=== PATIENT | female | born 1970 | race Caucasian/White ===

== ENCOUNTER 2017-01-13 13:57 | Emergency (ER) | payer BC | END 2017-01-13 14:55 | disposition left against medical advice (07) | LOC: ED 13:57 | DX: Z53.9 Procedure and treatment not carried out, unspecified reason (principal) ==

== ENCOUNTER 2022-12-11 17:25 | Observation (INO) | payer BC, MEDICARE ==
--- NOTE | 2022-12-11 17:38 | ERPHSYRPT ---
- History of Present Illness Historian: patient Exam Limitations: no limitations Timing/Duration: today Activities at Onset: none Abdominal Pain Onset Location: epigastric Pain Radiation: no radiation Modifying Factors: Improves With: vomiting Associated Symptoms: loss of appetite, nausea, vomiting, weakness, No chest pain, No diarrhea Previous symptoms: no prior history, no recent treatment <JULIETTE SHEPPARD - Last Filed: 12/11/22 19:04> <KANNAN NOLEN - Last Filed: 12/12/22 01:41> - History of Present Illness Time Seen by Provider: 12/11/22 17:38 Physician History: This is an obese 52-year-old white female who is diabetic and has significant coronary artery disease who presents with epigastric abdominal pain with vomiting. Patient received her last dose of Ozempic last week. She was told that her abdominal pain and vomiting symptoms were due to this. Patient denies chest pain. She denies shortness of breath. Additional patient history was obtained by the patient's spouse. Patient has felt feverish but no measured fever. She has not had diarrhea. (JULIETTE SHEPPARD) Allergies/Adverse Reactions: gabapentin Allergy (Verified 12/11/22 18:00) leflunomide Allergy (Verified 12/11/22 18:00) metoprolol Allergy (Verified 12/11/22 18:00) Home Medications: Abatacept [Orencia Clickject] 125 mg SQ UD 12/11/22 [History] Aspirin EC 81 mg [Ecotrin 81 mg] 81 mg PO DAILY 12/11/22 [History] Atorvastatin Calcium 40 mg PO DAILY 12/11/22 [History] Baclofen 10 mg [Lioresal 10 mg] 10 mg PO TID 12/11/22 [History] Buspirone HCl 5 mg [Buspar 5 mg] 5 mg PO BID 12/11/22 [History] Colestipol HCl [Colestid] 1 gm PO DAILY 12/11/22 [History] Dapagliflozin Propanediol [Farxiga] 10 mg PO DAILY 12/11/22 [History] Famotidine 20 mg [Pepcid 20 MG] 20 mg PO DAILY 12/11/22 [History] Ferrous Sulfate 325 mg PO BID 12/11/22 [History] Fluticasone/Umeclidin/Vilanter [Trelegy Ellipta 200-62.5-25] 1 inh PO DAILY 12/11/22 [History] Furosemide 20 mg [Lasix 20 mg] 20 mg PO DAILY 12/11/22 [History] Insulin Aspart (Niacinamide) [Fiasp 100 Unit/ml Flextouch] 10 units SQ DAILY 12/11/22 [History] Levothyroxine Sodium 100 mcg PO DAILY 12/11/22 [History] Lipase/Protease/Amylase [Ly Elizalde 36,000 Unit Capsule] 36,000 units PO UD 12/11/22 [History] Montelukast Sodium 10 mg [Singulair 10 MG] 10 mg PO DAILY 12/11/22 [History] PANTOPRAZOLE 40 mg Tablet [Protonix 40MG Tablet] 40 mg PO QPM 12/11/22 [History] Potassium Chloride [Klor-Con M20] 40 meq PO BID 12/11/22 [History] Semaglutide [Ozempic] 2 mg SQ WEEKLY 12/11/22 [History] Tizanidine HCl [Zanaflex] 6 mg PO DAILY 12/11/22 [History] dilTIAZem HCl [Diltiazem 24Hr Cd] 180 mg PO DAILY 12/11/22 [History] Travel Risk - International Travel Have you traveled outside of the country in past 3 weeks: No - Coronavirus Screening Are you exhibiting any of the following symptoms?: Yes Symptoms: Vomiting/Diarrhea Close contact with a COVID-19 positive Pt in past 14-21 Days: No <JULIETTE SHEPPARD - Last Filed: 12/11/22 19:04> - Review of Systems Constitutional: No Symptoms Eyes: No Symptoms Ears, Nose, & Throat: No Symptoms Respiratory: No Symptoms Cardiac: No Symptoms Abdominal/Gastrointestinal: Abdominal Pain, Nausea, Vomiting, No Diarrhea, No Constipation Genitourinary Symptoms: No Symptoms Musculoskeletal: No Symptoms Skin: No Symptoms Neurological: No Symptoms Psychological: No Symptoms Endocrine: No Symptoms Hematologic/Lymphatic: No Symptoms Immunological/Allergic: No Symptoms All Other Systems: Reviewed and Negative <JULIETTE SHEPPARD - Last Filed: 12/11/22 19:04> - Past Medical History Pertinent Past Medical History: Yes - Past Surgical History Past Surgical History: Yes <JULIETTE SHEPPARD - Last Filed: 12/11/22 19:04> - Physical Exam General Appearance: mild distress, alert, anxiety, obese Eye Exam: PERRL/EOMI, eyes nml inspection Ears, Nose, Throat Exam: normal ENT inspection, moist mucous membranes Neck Exam: normal inspection, non-tender, supple, full range of motion Respiratory Exam: normal breath sounds, lungs clear, airway intact, No chest tenderness, No respiratory distress Cardiovascular Exam: tachycardia Gastrointestinal/Abdomen Exam: soft, normal bowel sounds, tenderness (Epigastrium), guarding (Mild with palpation epigastrium), No rebound Rectal Exam: deferred Back Exam: normal inspection, normal range of motion, No CVA tenderness, No vertebral tenderness Extremity Exam: normal inspection, normal range of motion, pelvis stable Neurologic Exam: alert, oriented x 3, cooperative, community development worker II-XII nml as tested, nml cerebellar function, nml station & gait Skin Exam: normal color, warm, dry Lymphatic Exam: No adenopathy SpO2 Interpretation: normal O2 Delivery: Room Air <JULIETTE SHEPPARD - Last Filed: 12/11/22 19:04> - Nursing Vital Signs Nursing Vital Signs: Initial Vital Signs Temperature 98.3 F 12/11/22 17:36 Pulse Rate 124 H 12/11/22 17:36 Blood Pressure 157/87 12/11/22 17:36 O2 Sat by Pulse Oximetry 98 12/11/22 17:36 Pain Scale Pain Intensity 6 - Course Nursing assessment & vital signs reviewed: Yes <JULIETTE SHEPPARD - Last Filed: 12/11/22 19:04> - Course EKG Interpreted by Or: RATE ([id number]), Sinus Tach, NORMAL AXIS, NORMAL INTERVALS, NORMAL ST-T - CT Exams Abdomen/Pelvis CT Interpretation: Negative, Tele-radiologist Report <KANNAN NOLEN - Last Filed: 12/12/22 01:41> Ordered Tests: Active Orders 24 hr Category Date Time Status EKG-ER Only STAT Care 12/11/22 17:56 Completed IV Insertion STAT Care 12/11/22 17:56 Active ABDOMEN AND PELVIS W/0 CONTRAS [CT] Stat Exams 12/11/22 18:17 Completed AMYLASE Stat Lab 12/11/22 18:02 Completed BLOOD CULTURE Stat Lab 12/11/22 17:57 Received CBC W DIFF Stat Lab 12/11/22 18:02 Completed CMP Stat Lab 12/11/22 18:02 Completed LIPASE Stat Lab 12/11/22 18:02 Completed Lactic Acid Stat Lab 12/11/22 18:05 Completed TROPONIN Q4H Lab 12/11/22 18:02 Completed TROPONIN Q4H Lab 12/11/22 20:56 Completed TROPONIN Q4H Lab 12/12/22 02:00 Ordered UA W/RFX UR CULTURE Stat Lab 12/11/22 18:54 Completed VENOUS BLOOD GAS Stat Lab 12/11/22 20:55 Completed Medication Summary Generic Name Dose Route Start Last Admin Trade Name Freq PRN Reason Stop Dose Admin Lipase/Protease/Amylase 36,000 each 12/12/22 08:00 Lipase/Protease/Amylase 1 Each Capsule. PO 01/11/23 07:59 BIDWMEALS EUGENE Aspirin 81 mg 12/12/22 10:00 Aspirin 81 Mg Tab.Chew PO 01/11/23 09:59 [facility] Atorvastatin Calcium 40 mg 12/12/22 22:00 Atorvastatin Calcium 40 Mg Tablet PO 01/11/23 21:59 QPM EUGENE Baclofen 10 mg 12/12/22 10:00 Baclofen 10 Mg Tablet PO 01/11/23 09:59 TID [facility] Buspirone HCl 5 mg 12/12/22 10:00 Buspirone Hcl 5 Mg Tablet PO 01/11/23 09:59 BID [facility] Diltiazem HCl 180 mg 12/12/22 10:00 Diltiazem Hcl Cd 180 Mg Cap.Sr.24h PO 01/11/23 09:59 DAILY [facility] Enoxaparin Sodium 40 mg 12/12/22 10:00 Enoxaparin Sodium 40 Mg/0.4 Ml Syringe SQ 01/11/23 09:59 DA[facility] Famotidine 20 mg 12/12/22 22:00 Famotidine 20 Mg Tablet PO 01/11/23 21:59 HS EUGENE Ferrous Sulfate 325 mg 12/12/22 10:00 Ferrous Sulfate 325 Mg Tablet PO 01/11/23 09:59 [facility] Lactated Ringer's 1,000 mls @ 100 mls/hr 12/11/22 23:30 Lactated Ringers IV 12/12/22 09:00 .Q10H EUGENE Sodium Chloride 1,000 mls @ 100 mls/hr 12/11/22 23:45 12/12/22 00:02 Sodium Chloride 0.9% 1000 Ml IV 01/10/23 23:44 100 mls/hr .Q10H EUGENE Administration Promethazine HCl 25 mg/ Sodium 101 mls @ 200 mls/hr 12/11/22 23:33 Chloride IV 01/10/23 23:32 Q4H PRN PRN UNCONTROLLED NAUSEA Insulin Human Lispro 0 unit 12/11/22 23:39 Insulin Lispro 1 Unit SQ 01/10/23 23:38 UD PRN HYPERGLYCEMIA Levothyroxine Sodium 100 mcg 12/12/22 07:00 Levothyroxine Sodium 100 Mcg Tablet PO 01/11/23 06:59 DAILY@0700 [facility] Montelukast Sodium 10 mg 12/12/22 10:00 Montelukast Sodium 10 Mg Tablet PO 01/11/23 09:59 [facility] Morphine Sulfate 2 mg 12/11/22 23:29 Morphine Sulfate 2 Mg/Ml Inj IV 12/16/22 23:28 Q4H PRN PRN PAIN Ondansetron HCl 4 mg 12/11/22 23:29 Ondansetron Hcl 4 Mg/2 Ml Vial IV 01/10/23 23:28 Q4H PRN PRN NAUSEA/VOMITING Pantoprazole Sodium 40 mg 12/12/22 10:00 Protonix (Pantoprazole) 40 Mg Tablet PO 01/11/23 09:59 DAILY [facility] Tizanidine HCl 6 mg 12/12/22 10:00 Tizanidine Hcl 4 Mg Tablet PO 01/11/23 09:59 DAILY [facility] Discontinued Medications Generic Name Dose Route Start Last Admin Trade Name Freq PRN Reason Stop Dose Admin Droperidol 1.25 mg 12/11/22 20:33 12/11/22 21:17 Droperidol 5 Mg/2 Ml Vial IV 12/11/22 20:34 1.25 mg STAT ONE Administration Droperidol Confirm 12/11/22 21:15 Droperidol 5 Mg/2 Ml Vial Administered 12/11/22 21:16 Dose 5 mg .ROUTE .STK-MED ONE Hydromorphone HCl 0.5 mg 12/11/22 18:24 12/11/22 18:32 Hydromorphone 1 Mg/1ml Inj 1 Mg/Ml Syringe IV 12/11/22 18:25 Not Given STAT ONE Sodium Chloride 1,000 mls @ 999 mls/hr 12/11/22 17:56 12/11/22 19:43 Sodium Chloride 0.9% 1000 Ml IV 12/11/22 18:56 Infused .Q1H1M STA Infusion Sodium Chloride Confirm 12/11/22 18:24 Sodium Chloride 0.9% 1000 Ml Administered 12/11/22 18:25 Dose 1,000 mls @ ud .ROUTE .STK-InflowControl ONE Ondansetron HCl 4 mg 12/11/22 17:56 12/11/22 18:25 Ondansetron Hcl 4 Mg/2 Ml Vial IV 12/11/22 17:57 4 mg STAT ONE Administration Ondansetron HCl Confirm 12/11/22 18:24 Ondansetron Hcl 4 Mg/2 Ml Vial Administered 12/11/22 18:25 Dose 4 mg .ROUTE .NewGoTos-InflowControl ONE Lab/Rad Data: Laboratory Result Diagrams 12/11/22 18:02 12/11/22 18:02 Laboratory Results 12/11/22 12/11/22 12/11/22 Range/Units 20:56 20:55 18:54 WBC (4.0-10.5) x10^3/uL RBC (4.1-5.4) x10^6/uL Hgb (12.0-16.0) g/dL Hct (35-47) % MCV (78-100) fL MCH (26-32) pg MCHC (32-36) g/dL RDW (11.5-14.0) % Plt Count (150-450) x10^3/uL MPV (7.5-11.0) fL Gran % (36.0-66.0) % Immature Gran % (Auto) (0.00-0.4) % Nucleat RBC Rel Count (0.00-0.1) % Eos # (Auto) (0-0.5) x10^3/uL Immature Gran # (Auto) (0.00-0.03) x10^3u/L Absolute Lymphs (auto) (1.0-4.6) x10^3/uL Absolute Monos (auto) (0.0-1.3) x10^3/uL Absolute Nucleated RBC (0.00-0.01) x10^3u/L Lymphocytes % (24.0-44.0) % Monocytes % (0.0-12.0) % Eosinophils % (0.00-5.0) % Basophils % (0.0-0.4) % Absolute Granulocytes (1.4-6.9) x10^3/uL Basophils # (0-0.4) x10^3/uL pO2/FiO2 Ratio 21.0 % VBG pH 7.43 H (7.32-7.42) VBG pCO2 at Pat Temp 36 L (42-55) mm/Hg VBG pO2 at Pat Temp 28 (25-40) mm/Hg VBG HCO3 23.9 (22-28) meq/L VBG O2 Sat (Deborah) 47.2 L (95-100) VBG Base Excess 0.0 (-2.0-2.0) VBG Hemoglobin 16.1 VBG Carboxyhemoglobin 1.7 (0.0-6.9) % T HGB POC Potassium 4.2 (3.5-5.1) Sodium (137-145) mmol/L Potassium (3.5-5.1) mmol/L Chloride (98-107) mmol/L Carbon Dioxide (22-30) mmol/L Anion Gap (5-15) MEQ/L BUN (7-17) mg/dL Creatinine (0.52-1.04) mg/dL Estimated GFR ML/MIN Glucose (74-106) mg/dL Lactic Acid (0.4-2.0) Calcium (8.4-10.2) mg/dL Total Bilirubin (0.2-1.3) mg/dL AST (14-36) U/L ALT (0-35) U/L Alkaline Phosphatase (38-126) U/L Troponin I 0.094 H* (0.000-0.034) ng/mL Serum Total Protein (6.3-8.2) g/dL Albumin (3.5-5.0) g/dL Amylase (30-110) U/L Lipase (23-300) U/L Urine Color Yellow (Yellow) Urine Appearance Clear (Clear) Urine pH 5.0 (4.6-8.0) Ur Specific [place] >=1.030 A (1.005-1.030) Urine Protein Negative (Negative) Urine Glucose (UA) >=1000 A (Negative) mg/dL Urine Ketones 80 A (Negative) Urine Blood Negative (Negative) Urine Nitrite Negative (Negative) Urine Bilirubin Negative (Negative) Urine Urobilinogen 0.2 (0.2) mg/dL Ur Leukocyte Esterase Negative (Negative) U Hyaline Cast (Auto) NONE SEEN (0-2) /LPF Urine Microscopic RBC 0-2 (0-5) /HPF Urine Microscopic WBC 0-2 (0-5) /HPF Ur Epithelial Cells None Seen (None Seen) /HPF Urine Bacteria None Seen (None Seen) /HPF Urine Culture Reflexed NO (NO) Influenza Type A Ag (NEGATIVE) Influenza Type B Ag (NEGATIVE) RSV (PCR) (NEGATIVE) SARS-CoV-2 (PCR) (NEGATIVE) 12/11/22 12/11/22 12/11/22 Range/Units 18:47 18:05 18:02 WBC (4.0-10.5) x10^3/uL RBC (4.1-5.4) x10^6/uL Hgb (12.0-16.0) g/dL Hct (35-47) % MCV (78-100) fL MCH (26-32) pg MCHC (32-36) g/dL RDW (11.5-14.0) % Plt Count (150-450) x10^3/uL MPV (7.5-11.0) fL Gran % (36.0-66.0) % Immature Gran % (Auto) (0.00-0.4) % Nucleat RBC Rel Count (0.00-0.1) % Eos # (Auto) (0-0.5) x10^3/uL Immature Gran # (Auto) (0.00-0.03) x10^3u/L Absolute Lymphs (auto) (1.0-4.6) x10^3/uL Absolute Monos (auto) (0.0-1.3) x10^3/uL Absolute Nucleated RBC (0.00-0.01) x10^3u/L Lymphocytes % (24.0-44.0) % Monocytes % (0.0-12.0) % Eosinophils % (0.00-5.0) % Basophils % (0.0-0.4) % Absolute Granulocytes (1.4-6.9) x10^3/uL Basophils # (0-0.4) x10^3/uL pO2/FiO2 Ratio % VBG pH (7.32-7.42) VBG pCO2 at Pat Temp (42-55) mm/Hg VBG pO2 at Pat Temp (25-40) mm/Hg VBG HCO3 (22-28) meq/L VBG O2 Sat (Deborah) (95-100) VBG Base Excess (-2.0-2.0) VBG Hemoglobin VBG Carboxyhemoglobin (0.0-6.9) % T HGB POC Potassium (3.5-5.1) Sodium (137-145) mmol/L Potassium (3.5-5.1) mmol/L Chloride (98-107) mmol/L Carbon Dioxide (22-30) mmol/L Anion Gap (5-15) MEQ/L BUN (7-17) mg/dL Creatinine (0.52-1.04) mg/dL Estimated GFR ML/MIN Glucose (74-106) mg/dL Lactic Acid 1.6 (0.4-2.0) Calcium (8.4-10.2) mg/dL Total Bilirubin (0.2-1.3) mg/dL AST (14-36) U/L ALT (0-35) U/L Alkaline Phosphatase (38-126) U/L Troponin I 0.092 H* (0.000-0.034) ng/mL Serum Total Protein (6.3-8.2) g/dL Albumin (3.5-5.0) g/dL Amylase (30-110) U/L Lipase (23-300) U/L Urine Color (Yellow) Urine Appearance (Clear) Urine pH (4.6-8.0) Ur Specific [place] (1.005-1.030) Urine Protein (Negative) Urine Glucose (UA) (Negative) mg/dL Urine Ketones (Negative) Urine Blood (Negative) Urine Nitrite (Negative) Urine Bilirubin (Negative) Urine Urobilinogen (0.2) mg/dL Ur Leukocyte Esterase (Negative) U Hyaline Cast (Auto) (0-2) /LPF Urine Microscopic RBC (0-5) /HPF Urine Microscopic WBC (0-5) /HPF Ur Epithelial Cells (None Seen) /HPF Urine Bacteria (None Seen) /HPF Urine Culture Reflexed (NO) Influenza Type A Ag NEGATIVE (NEGATIVE) Influenza Type B Ag NEGATIVE (NEGATIVE) RSV (PCR) NEGATIVE (NEGATIVE) SARS-CoV-2 (PCR) NEGATIVE (NEGATIVE) 12/11/22 12/11/22 Range/Units 18:02 18:02 WBC 10.4 (4.0-10.5) x10^3/uL RBC 5.30 (4.1-5.4) x10^6/uL Hgb 16.0 (12.0-16.0) g/dL Hct 48.2 H (35-47) % MCV 90.9 (78-100) fL MCH 30.2 (26-32) pg MCHC 33.2 (32-36) g/dL RDW 12.3 (11.5-14.0) % Plt Count 381 (150-450) x10^3/uL MPV 9.3 (7.5-11.0) fL Gran % 85.2 H (36.0-66.0) % Immature Gran % (Auto) 0.3 (0.00-0.4) % Nucleat RBC Rel Count 0.0 (0.00-0.1) % Eos # (Auto) 0 (0-0.5) x10^3/uL Immature Gran # (Auto) 0.03 (0.00-0.03) x10^3u/L Absolute Lymphs (auto) 1.20 (1.0-4.6) x10^3/uL Absolute Monos (auto) 0.27 (0.0-1.3) x10^3/uL Absolute Nucleated RBC 0.00 (0.00-0.01) x10^3u/L Lymphocytes % 11.5 L (24.0-44.0) % Monocytes % 2.6 (0.0-12.0) % Eosinophils % 0.0 (0.00-5.0) % Basophils % 0.4 (0.0-0.4) % Absolute Granulocytes 8.89 H (1.4-6.9) x10^3/uL Basophils # 0.04 (0-0.4) x10^3/uL pO2/FiO2 Ratio % VBG pH (7.32-7.42) VBG pCO2 at Pat Temp (42-55) mm/Hg VBG pO2 at Pat Temp (25-40) mm/Hg VBG HCO3 (22-28) meq/L VBG O2 Sat (Deborah) (95-100) VBG Base Excess (-2.0-2.0) VBG Hemoglobin VBG Carboxyhemoglobin (0.0-6.9) % T HGB POC Potassium (3.5-5.1) Sodium 143 (137-145) mmol/L Potassium 3.7 (3.5-5.1) mmol/L Chloride 109 H (98-107) mmol/L Carbon Dioxide 21 L (22-30) mmol/L Anion Gap 17.7 H (5-15) MEQ/L BUN 12 (7-17) mg/dL Creatinine 0.67 (0.52-1.04) mg/dL Estimated GFR > 60.0 ML/MIN Glucose 155 H (74-106) mg/dL Lactic Acid (0.4-2.0) Calcium 10.0 (8.4-10.2) mg/dL Total Bilirubin 0.70 (0.2-1.3) mg/dL AST 29 (14-36) U/L ALT 31 (0-35) U/L Alkaline Phosphatase 130 H (38-126) U/L Troponin I (0.000-0.034) ng/mL Serum Total Protein 7.4 (6.3-8.2) g/dL Albumin 4.5 (3.5-5.0) g/dL Amylase 65 (30-110) U/L Lipase 253 (23-300) U/L Urine Color (Yellow) Urine Appearance (Clear) Urine pH (4.6-8.0) Ur Specific [place] (1.005-1.030) Urine Protein (Negative) Urine Glucose (UA) (Negative) mg/dL Urine Ketones (Negative) Urine Blood (Negative) Urine Nitrite (Negative) Urine Bilirubin (Negative) Urine Urobilinogen (0.2) mg/dL Ur Leukocyte Esterase (Negative) U Hyaline Cast (Auto) (0-2) /LPF Urine Microscopic RBC (0-5) /HPF Urine Microscopic WBC (0-5) /HPF Ur Epithelial Cells (None Seen) /HPF Urine Bacteria (None Seen) /HPF Urine Culture Reflexed (NO) Influenza Type A Ag (NEGATIVE) Influenza Type B Ag (NEGATIVE) RSV (PCR) (NEGATIVE) SARS-CoV-2 (PCR) (NEGATIVE) - Progress Progress: improved, pain not gone completely Counseled pt/family regarding: lab results, diagnosis, need for follow-up, rad r esults <JULIETTE SHEPPARD - Last Filed: 12/11/22 19:04> <KANNAN NOLEN - Last Filed: 12/12/22 01:41> - Progress Progress Note: 12/11/22 19:04 Patient transfer of care to Dr. Nolen at shift change. 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 Decision made to admit for ACS r/o, nausea and pain control. Dr. Johnson agrees to accept at 2152. (KANNAN NOLEN) Medical Desision Making - Discussion of managment Care discussed with:: hospitalist Reviewed:: Test results, Need for additional workup Agreed on:: Treatment plan, place in obs Will see patient: in hospital - Diagnostic Testing Diagnostic test were ordered, analyzed, and reviewed by me: Yes Radiological Interpretation: Interpreted by me - Risk of complications The pt has a mod risk of morbidity or mortality based on: Need for prescription drug management The pt has a high risk of morbidity or mortality based on: Decision regarding hospitilization or escalation of hosp level of care <KANNAN NOLEN - Last Filed: 12/12/22 01:41> - Departure Departure Disposition: Transfer Critical Care Time: No <JULIETTE SHEPPARD - Last Filed: 12/11/22 19:04> - Departure Departure Disposition: Observation <KANNAN NOLEN - Last Filed: 12/12/22 01:41> - Departure Clinical Impression: Abdominal pain, Vomiting, Elevated troponin Condition: Stable
[2022-12-11] MEDS ORDERED: Sodium Chloride 0.9% 1000 ML 1,000 ML IV STA (17:56)
[2022-12-11] MEDS ORDERED: Zofran 4 MG/2 ML VIAL IV ONE (17:56)
[2022-12-11 18:06] LABS: Absolute Neutrophil Ct (ANC) 8.89 x10^3/uL (1.4-6.9); BASOPHIL % 0.4 % (0.0-0.4); Basophil (Absolute #) 0.04 x10^3/uL (0-0.4); Eosinophil (Absolute #) 0 x10^3/uL (0-0.5); Hematocrit 48.2 % (35-47); IMMATURE GRAN # 0.03 x10^3u/L (0.00-0.03); IMMATURE GRAN % 0.3 % (0.00-0.4); Lymphocytes % 11.5 % (24.0-44.0); Mean Cell Volume 90.9 fL (78-100); Mean Corpuscular Hemoglobin 30.2 pg (26-32); Mean Corpuscular Hgb Concent. 33.2 g/dL (32-36); Mean Platelet Volume 9.3 fL (7.5-11.0); Monocyte (Absolute #) 0.27 x10^3/uL (0.0-1.3); Monocytes % 2.6 % (0.0-12.0); Neutrophil % 85.2 % (36.0-66.0); Platelet Count 381 x10^3/uL (150-450); Red Cell Distribution Width 12.3 % (11.5-14.0); White Blood Count 10.4 x10^3/uL (4.0-10.5)
[2022-12-11 18:20] LABS: ALBUMIN 4.5 g/dL (3.5-5.0); ALKALINE PHOSPHATASE 130 U/L (38-126); AMYLASE 65 U/L (30-110); ANION GAP 17.7 MEQ/L (5-15); BLOOD UREA NITROGEN 12 mg/dL (7-17); CHLORIDE 109 mmol/L (98-107); Carbon Dioxide 21 mmol/L (22-30); Creatinine 1 0.67 mg/dL (0.52-1.04); EST GLOMERULAR FILTRATION RATE > 60.0 ML/MIN; Glucose 155 mg/dL (74-106); LIPASE 253 U/L (23-300); Potassium 3.7 mmol/L (3.5-5.1); SGOT/AST 29 U/L (14-36); SGPT/ALT 31 U/L (0-35); SODIUM 143 mmol/L (137-145); Total Protein 7.4 g/dL (6.3-8.2)
[2022-12-11] MEDS ORDERED: Hydromorphone 1 mg/ml Injection IV ONE (18:24)
[2022-12-11] MEDS ORDERED: Zofran 4 MG/2 ML VIAL ONE (18:24)
[2022-12-11] MEDS ORDERED: Sodium Chloride 0.9% 1000 ML 1,000 ML ONE (18:24)
[2022-12-11 19:21] LABS: Appearance Clear (Clear); Bacteria None Seen /HPF (None Seen); Bilirubin Negative (Negative); Blood Negative (Negative); Epithelial Cells None Seen /HPF (None Seen); Glucose, Urine >=1000 mg/dL (Negative); Hyaline Casts NONE SEEN /LPF (0-2); Ketones 80 (Negative); Leukocyte Esterase Negative (Negative); Nitrite Negative (Negative); Protein,Urine Dip Negative (Negative); RBC 0-2 /HPF (0-5); Specific Gravity >=1.030 (1.005-1.030); Urobilinogen 0.2 mg/dL (0.2); WBC 0-2 /HPF (0-5)
[2022-12-11 19:26] LABS: ADD URINE CULTURE? NO (NO)
[2022-12-11 19:31] LABS: INFLUENZA A NEGATIVE (NEGATIVE); INFLUENZA B NEGATIVE (NEGATIVE); RESPIRATORY SYNCTIAL VIRUS NEGATIVE (NEGATIVE); SARS-CoV-2 Xpert Express NEGATIVE (NEGATIVE)
--- NOTE | 2022-12-11 19:58 | XRAY ---
Indication: Nausea and vomiting 2 days. Multiple contiguous axial images obtained through the abdomen and pelvis without contrast. Comparison: None Lung bases clear. Heart not enlarged with scattered coronary calcifications. Left abdominal pain pump produces beam artifact limiting exam. Noncontrasted stomach and bowel loops appear nonobstructed. Appendectomy and cholecystectomy. No free fluid/air. Remaining liver, pancreas, spleen, adrenal glands, kidneys, ureters, bladder, and uterus are unremarkable for noncontrast exam. Mild scattered aortic calcifications without AAA. Osseous structures intact with minimal/mild degenerative changes throughout the spine. Incidental sternotomy wires. Impression: 1. Beam artifact from pain pump. 2. Arteriosclerotic disease and degenerative spondylosis. 3. Remaining CT abdomen/pelvis without contrast exam is negative. Comment: Preliminary interpretation made by [facility]. No critical discrepancy.
[2022-12-11 20:59] LABS: VBG CARBOXYHEMOGLOBIN 1.7 % T HGB (0.0-6.9); VBG HCO3- 23.9 meq/L (22-28); VBG HEMOGLOBIN 16.1; VBG O2 SATURATION 47.2 (95-100); VBG POTASSIUM 4.2 (3.5-5.1); VBG pH 7.43 (7.32-7.42)
[2022-12-11] MEDS ORDERED: MORPHINE SULFATE 2 MG INJ IV PRN (23:29)
[2022-12-11] MEDS ORDERED: Zofran 4 MG/2 ML VIAL IV PRN (23:29)
[2022-12-11] MEDS ORDERED: Lactated Ringers 1,000 ML IV SCH (23:30)
[2022-12-11] MEDS ORDERED: Phenergan 25 MG INJ*** 25 MG in Sodium Chloride 0.9% 100 ML IV PRN (23:33)
[2022-12-11] MEDS ORDERED: HUMALOG SQ PRN (23:39)
[2022-12-11] MEDS ORDERED: Sodium Chloride 0.9% 1000 ML 1,000 ML IV SCH (23:45)
--- NOTE | 2022-12-11 23:51 | PCM.HP ---
History of Present Illness - Chief Complaint Chief Complaint: n/v/ TERESA pain History of Present Illness: 52 yo wf with hx of DM, CAD, OA, RA, Pancreatitic insufficiency presents with 1 day hx of n/v and TERESA pain. Pt states this is the 3rd episode since last June. Symptoms sudden. PCP and GI provider felt it was 2/2 Ozempic(takes weekly). Last episode resolved without issue. Denies melena. Denies use of NSAIDs. Had unrevealing EGD last Jun. Has since stopped OZempic last week but sxs came. Denies chest pain or sob. In ED pt with mild increase in trop. 2nd set flat. No ECG changes. CT abd unrevealing. - Review of Systems Constitutional: No Symptoms Eyes: No Symptoms Ears, Nose, & Throat: No Symptoms Respiratory: No Symptoms Cardiac: No Symptoms Abdominal/Gastrointestinal: Abdominal Pain, Nausea, Vomiting Genitourinary Symptoms: No Symptoms Musculoskeletal: Joint Pain Skin: No Symptoms Neurological: No Symptoms Psychological: No Symptoms Endocrine: No Symptoms Hematologic/Lymphatic: No Symptoms Immunological/Allergic: No Symptoms All Other Systems: Reviewed and Negative Medications & Allergies Home Medications: Home Medication List Abatacept [Orencia Clickject] 125 mg SQ UD 12/11/22 [History Confirmed 12/11/22] Aspirin EC 81 mg [Ecotrin 81 mg] 81 mg PO DAILY 12/11/22 [History Confirmed 12/11/22] Atorvastatin Calcium 40 mg PO DAILY 12/11/22 [History Confirmed 12/11/22] Baclofen 10 mg [Lioresal 10 mg] 10 mg PO TID 12/11/22 [History Confirmed 12/11/22] Buspirone HCl 5 mg [Buspar 5 mg] 5 mg PO BID 12/11/22 [History Confirmed 12/11/22] Colestipol HCl [Colestid] 1 gm PO DAILY 12/11/22 [History Confirmed 12/11/22] Dapagliflozin Propanediol [Farxiga] 10 mg PO DAILY 12/11/22 [History Confirmed 12/11/22] Famotidine 20 mg [Pepcid 20 MG] 20 mg PO DAILY 12/11/22 [History Confirmed 12/11/22] Ferrous Sulfate 325 mg PO BID 12/11/22 [History Confirmed 12/11/22] Fluticasone/Umeclidin/Vilanter [Trelegy Ellipta 200-62.5-25] 1 inh PO DAILY 12/11/22 [History Confirmed 12/11/22] Furosemide 20 mg [Lasix 20 mg] 20 mg PO DAILY 12/11/22 [History Confirmed 12/11/22] Insulin Aspart (Niacinamide) [Fiasp 100 Unit/ml Flextouch] 10 units SQ DAILY 12/11/22 [History Confirmed 12/11/22] Levothyroxine Sodium 100 mcg PO DAILY 12/11/22 [History Confirmed 12/11/22] Lipase/Protease/Amylase [Ly Elizalde 36,000 Unit Capsule] 36,000 units PO UD 12/11/22 [History Confirmed 12/11/22] Montelukast Sodium 10 mg [Singulair 10 MG] 10 mg PO DAILY 12/11/22 [History Confirmed 12/11/22] PANTOPRAZOLE 40 mg Tablet [Protonix 40MG Tablet] 40 mg PO QPM 12/11/22 [History Confirmed 12/11/22] Potassium Chloride [Klor-Con M20] 40 meq PO BID 12/11/22 [History Confirmed 12/11/22] Semaglutide [Ozempic] 2 mg SQ WEEKLY 12/11/22 [History Confirmed 12/11/22] Tizanidine HCl [Zanaflex] 6 mg PO DAILY 12/11/22 [History Confirmed 12/11/22] dilTIAZem HCl [Diltiazem 24Hr Cd] 180 mg PO DAILY 12/11/22 [History Confirmed 12/11/22] Allergies/Adverse Reactions: Allergies Allergy/AdvReac Type Severity Reaction Status Date / Time gabapentin Allergy Verified 12/11/22 18:00 leflunomide Allergy Verified 12/11/22 18:00 metoprolol Allergy Verified 12/11/22 18:00 - Past Medical History Past Medical History: Yes Neurological History: No Pertinent History ENT History: No Pertinent History Cardiac History: Coronary Artery Disease, Other Respiratory History: Asthma Endocrine Medical History: Diabetes Type II, Hypothyroidism Musculoskelatal History: Degenerative Disk Disease, Osteoarthritis, Rheumatoid Arthritis GI Medical History: No Pertinent History History: No Pertinent History Reproductive Disorders: No Pertinent History Comment: pancreatic insufficincy, facet joint degeneration, pain pump implant(CHronic back pain) - Past Surgical History Past Surgical History: Yes Neuro Surgical History: No Pertinent History Cardiac History: CABG, Cardiac Catheterization Respiratory Surgery: No Pertinent History GI Surgical History: Appendectomy, Cholecystectomy Genitourinary Surgical Hx: No Pertinent History Female Surgical History: Dilation & Curettage, Tubal Ligation Other Surgical History: back surgery, pain pump - Social History Smoking Status: Never smoker Exposure to second hand smoke: Yes Alcohol: Rarely Drug Use: none - Physical Exam Vital Signs: Vital Signs - 24 hr Temp Pulse BP Pulse Ox 12/11/22 19:10 122 H 153/102 99 12/11/22 17:36 98.3 F 124 H 157/87 98 General Appearance: no apparent distress Neurologic Exam: alert, oriented x 3, cooperative Eye Exam: PERRL/EOMI, eyes nml inspection Ears, Nose, Throat Exam: normal ENT inspection Neck Exam: normal inspection Respiratory Exam: normal breath sounds Cardiovascular Exam: regular rate/rhythm, normal heart sounds, normal peripheral pulses Gastrointestinal/Abdomen Exam: soft, normal bowel sounds, No guarding, No rebound Back Exam: normal inspection Extremity Exam: normal inspection, normal range of motion Skin Exam: normal color, warm Results - Labs Lab/Micro Results: Lab Results-Last 24 Hours 12/11/22 12/11/22 12/11/22 Range/Units 18:02 18:02 18:02 WBC 10.4 (4.0-10.5) x10^3/uL RBC 5.30 (4.1-5.4) x10^6/uL Hgb 16.0 (12.0-16.0) g/dL Hct 48.2 H (35-47) % MCV 90.9 (78-100) fL MCH 30.2 (26-32) pg MCHC 33.2 (32-36) g/dL RDW 12.3 (11.5-14.0) % Plt Count 381 (150-450) x10^3/uL MPV 9.3 (7.5-11.0) fL Gran % 85.2 H (36.0-66.0) % Immature Gran % (Auto) 0.3 (0.00-0.4) % Nucleat RBC Rel Count 0.0 (0.00-0.1) % Eos # (Auto) 0 (0-0.5) x10^3/uL Immature Gran # (Auto) 0.03 (0.00-0.03) x10^3u/L Absolute Lymphs (auto) 1.20 (1.0-4.6) x10^3/uL Absolute Monos (auto) 0.27 (0.0-1.3) x10^3/uL Absolute Nucleated RBC 0.00 (0.00-0.01) x10^3u/L Lymphocytes % 11.5 L (24.0-44.0) % Monocytes % 2.6 (0.0-12.0) % Eosinophils % 0.0 (0.00-5.0) % Basophils % 0.4 (0.0-0.4) % Absolute Granulocytes 8.89 H (1.4-6.9) x10^3/uL Basophils # 0.04 (0-0.4) x10^3/uL pO2/FiO2 Ratio % VBG pH (7.32-7.42) VBG pCO2 at Pat Temp (42-55) mm/Hg VBG pO2 at Pat Temp (25-40) mm/Hg VBG HCO3 (22-28) meq/L VBG O2 Sat (Deborah) (95-100) VBG Base Excess (-2.0-2.0) VBG Hemoglobin VBG Carboxyhemoglobin (0.0-6.9) % T HGB POC Potassium (3.5-5.1) Sodium 143 (137-145) mmol/L Potassium 3.7 (3.5-5.1) mmol/L Chloride 109 H (98-107) mmol/L Carbon Dioxide 21 L (22-30) mmol/L Anion Gap 17.7 H (5-15) MEQ/L BUN 12 (7-17) mg/dL Creatinine 0.67 (0.52-1.04) mg/dL Estimated GFR > 60.0 ML/MIN Glucose 155 H (74-106) mg/dL Lactic Acid (0.4-2.0) Calcium 10.0 (8.4-10.2) mg/dL Total Bilirubin 0.70 (0.2-1.3) mg/dL AST 29 (14-36) U/L ALT 31 (0-35) U/L Alkaline Phosphatase 130 H (38-126) U/L Troponin I 0.092 H* (0.000-0.034) ng/mL Serum Total Protein 7.4 (6.3-8.2) g/dL Albumin 4.5 (3.5-5.0) g/dL Amylase 65 (30-110) U/L Lipase 253 (23-300) U/L Urine Color (Yellow) Urine Appearance (Clear) Urine pH (4.6-8.0) Ur Specific Steedman (1.005-1.030) Urine Protein (Negative) Urine Glucose (UA) (Negative) mg/dL Urine Ketones (Negative) Urine Blood (Negative) Urine Nitrite (Negative) Urine Bilirubin (Negative) Urine Urobilinogen (0.2) mg/dL Ur Leukocyte Esterase (Negative) U Hyaline Cast (Auto) (0-2) /LPF Urine Microscopic RBC (0-5) /HPF Urine Microscopic WBC (0-5) /HPF Ur Epithelial Cells (None Seen) /HPF Urine Bacteria (None Seen) /HPF Urine Culture Reflexed (NO) Influenza Type A Ag (NEGATIVE) Influenza Type B Ag (NEGATIVE) RSV (PCR) (NEGATIVE) SARS-CoV-2 (PCR) (NEGATIVE) 12/11/22 12/11/22 12/11/22 Range/Units 18:05 18:47 18:54 WBC (4.0-10.5) x10^3/uL RBC (4.1-5.4) x10^6/uL Hgb (12.0-16.0) g/dL Hct (35-47) % MCV (78-100) fL MCH (26-32) pg MCHC (32-36) g/dL RDW (11.5-14.0) % Plt Count (150-450) x10^3/uL MPV (7.5-11.0) fL Gran % (36.0-66.0) % Immature Gran % (Auto) (0.00-0.4) % Nucleat RBC Rel Count (0.00-0.1) % Eos # (Auto) (0-0.5) x10^3/uL Immature Gran # (Auto) (0.00-0.03) x10^3u/L Absolute Lymphs (auto) (1.0-4.6) x10^3/uL Absolute Monos (auto) (0.0-1.3) x10^3/uL Absolute Nucleated RBC (0.00-0.01) x10^3u/L Lymphocytes % (24.0-44.0) % Monocytes % (0.0-12.0) % Eosinophils % (0.00-5.0) % Basophils % (0.0-0.4) % Absolute Granulocytes (1.4-6.9) x10^3/uL Basophils # (0-0.4) x10^3/uL pO2/FiO2 Ratio % VBG pH (7.32-7.42) VBG pCO2 at Pat Temp (42-55) mm/Hg VBG pO2 at Pat Temp (25-40) mm/Hg VBG HCO3 (22-28) meq/L VBG O2 Sat (Deborah) (95-100) VBG Base Excess (-2.0-2.0) VBG Hemoglobin VBG Carboxyhemoglobin (0.0-6.9) % T HGB POC Potassium (3.5-5.1) Sodium (137-145) mmol/L Potassium (3.5-5.1) mmol/L Chloride (98-107) mmol/L Carbon Dioxide (22-30) mmol/L Anion Gap (5-15) MEQ/L BUN (7-17) mg/dL Creatinine (0.52-1.04) mg/dL Estimated GFR ML/MIN Glucose (74-106) mg/dL Lactic Acid 1.6 (0.4-2.0) Calcium (8.4-10.2) mg/dL Total Bilirubin (0.2-1.3) mg/dL AST (14-36) U/L ALT (0-35) U/L Alkaline Phosphatase (38-126) U/L Troponin I (0.000-0.034) ng/mL Serum Total Protein (6.3-8.2) g/dL Albumin (3.5-5.0) g/dL Amylase (30-110) U/L Lipase (23-300) U/L Urine Color Yellow (Yellow) Urine Appearance Clear (Clear) Urine pH 5.0 (4.6-8.0) Ur Specific Steedman >=1.030 A (1.005-1.030) Urine Protein Negative (Negative) Urine Glucose (UA) >=1000 A (Negative) mg/dL Urine Ketones 80 A (Negative) Urine Blood Negative (Negative) Urine Nitrite Negative (Negative) Urine Bilirubin Negative (Negative) Urine Urobilinogen 0.2 (0.2) mg/dL Ur Leukocyte Esterase Negative (Negative) U Hyaline Cast (Auto) NONE SEEN (0-2) /LPF Urine Microscopic RBC 0-2 (0-5) /HPF Urine Microscopic WBC 0-2 (0-5) /HPF Ur Epithelial Cells None Seen (None Seen) /HPF Urine Bacteria None Seen (None Seen) /HPF Urine Culture Reflexed NO (NO) Influenza Type A Ag NEGATIVE (NEGATIVE) Influenza Type B Ag NEGATIVE (NEGATIVE) RSV (PCR) NEGATIVE (NEGATIVE) SARS-CoV-2 (PCR) NEGATIVE (NEGATIVE) 12/11/22 12/11/22 Range/Units 20:55 20:56 WBC (4.0-10.5) x10^3/uL RBC (4.1-5.4) x10^6/uL Hgb (12.0-16.0) g/dL Hct (35-47) % MCV (78-100) fL MCH (26-32) pg MCHC (32-36) g/dL RDW (11.5-14.0) % Plt Count (150-450) x10^3/uL MPV (7.5-11.0) fL Gran % (36.0-66.0) % Immature Gran % (Auto) (0.00-0.4) % Nucleat RBC Rel Count (0.00-0.1) % Eos # (Auto) (0-0.5) x10^3/uL Immature Gran # (Auto) (0.00-0.03) x10^3u/L Absolute Lymphs (auto) (1.0-4.6) x10^3/uL Absolute Monos (auto) (0.0-1.3) x10^3/uL Absolute Nucleated RBC (0.00-0.01) x10^3u/L Lymphocytes % (24.0-44.0) % Monocytes % (0.0-12.0) % Eosinophils % (0.00-5.0) % Basophils % (0.0-0.4) % Absolute Granulocytes (1.4-6.9) x10^3/uL Basophils # (0-0.4) x10^3/uL pO2/FiO2 Ratio 21.0 % VBG pH 7.43 H (7.32-7.42) VBG pCO2 at Pat Temp 36 L (42-55) mm/Hg VBG pO2 at Pat Temp 28 (25-40) mm/Hg VBG HCO3 23.9 (22-28) meq/L VBG O2 Sat (Deborah) 47.2 L (95-100) VBG Base Excess 0.0 (-2.0-2.0) VBG Hemoglobin 16.1 VBG Carboxyhemoglobin 1.7 (0.0-6.9) % T HGB POC Potassium 4.2 (3.5-5.1) Sodium (137-145) mmol/L Potassium (3.5-5.1) mmol/L Chloride (98-107) mmol/L Carbon Dioxide (22-30) mmol/L Anion Gap (5-15) MEQ/L BUN (7-17) mg/dL Creatinine (0.52-1.04) mg/dL Estimated GFR ML/MIN Glucose (74-106) mg/dL Lactic Acid (0.4-2.0) Calcium (8.4-10.2) mg/dL Total Bilirubin (0.2-1.3) mg/dL AST (14-36) U/L ALT (0-35) U/L Alkaline Phosphatase (38-126) U/L Troponin I 0.094 H* (0.000-0.034) ng/mL Serum Total Protein (6.3-8.2) g/dL Albumin (3.5-5.0) g/dL Amylase (30-110) U/L Lipase (23-300) U/L Urine Color (Yellow) Urine Appearance (Clear) Urine pH (4.6-8.0) Ur Specific Steedman (1.005-1.030) Urine Protein (Negative) Urine Glucose (UA) (Negative) mg/dL Urine Ketones (Negative) Urine Blood (Negative) Urine Nitrite (Negative) Urine Bilirubin (Negative) Urine Urobilinogen (0.2) mg/dL Ur Leukocyte Esterase (Negative) U Hyaline Cast (Auto) (0-2) /LPF Urine Microscopic RBC (0-5) /HPF Urine Microscopic WBC (0-5) /HPF Ur Epithelial Cells (None Seen) /HPF Urine Bacteria (None Seen) /HPF Urine Culture Reflexed (NO) Influenza Type A Ag (NEGATIVE) Influenza Type B Ag (NEGATIVE) RSV (PCR) (NEGATIVE) SARS-CoV-2 (PCR) (NEGATIVE) - Radiology Impressions Radiology Exams & Impressions: Radiology Procedures Category Date Time Status ABDOMEN AND PELVIS W/0 CONTRAS [CT] Stat Exams 12/11/22 18:17 Completed - Other Procedures and Tests Respiratory Therapy 12/12/22 05:00 EKG ROUTINE Assessment/Plan (1) Abdominal pain Current Visit: Yes Status: Acute Assessment & Plan: 1. Abd pain: etiology not clear, HAd multiple episodes that are similar and felt 2/[address] abd unrevealing. Hx of pancreatic insufficiency but denies hx of chronic pancreatitis. Will hydrate. Continue analgesia and anti-emetics. 2. NTEMI: suspect supply/demand. Continue asa. Cycle Caio 3. DM: Sliding scale. Hold ozempic. Farxiga and aspart not on formulary 4. Volume depletion: IVFs 5. FEN: NPO tonight. Oral diet in am 6. PX: Lovenox 7. RA 8. HTN: Continue dilt 9. CAD: Hx of. Hx of CABG. Continue asa. Sanchez Johnson MD entire encounter done via telemedicine Code(s): R10.9 - UNSPECIFIED ABDOMINAL PAIN (2) Elevated troponin Current Visit: Yes Status: Acute Code(s): R77.8 - OTHER SPECIFIED ABNORMALITIES OF PLASMA PROTEINS Telemedicine Encounter - Telemedicine Encounter Telemedicine Encounter: The entirety of this encounter was performed via Telemedicine"
[2022-12-12 00:02] VITALS: O2SAT 96
[2022-12-12 03:19] LABS: Absolute Neutrophil Ct (ANC) 5.19 x10^3/uL (1.4-6.9); BASOPHIL % 0.5 % (0.0-0.4); Basophil (Absolute #) 0.04 x10^3/uL (0-0.4); Eosinophil % 0.1 % (0.00-5.0); Eosinophil (Absolute #) 0.01 x10^3/uL (0-0.5); Hematocrit 43.7 % (35-47); Hemoglobin 14.1 g/dL (12.0-16.0); IMMATURE GRAN # 0.02 x10^3u/L (0.00-0.03); IMMATURE GRAN % 0.2 % (0.00-0.4); Lymphocyte (Absolute #) 2.24 x10^3/uL (1.0-4.6); Lymphocytes % 27.4 % (24.0-44.0); Mean Cell Volume 94.6 fL (78-100); Mean Corpuscular Hemoglobin 30.5 pg (26-32); Mean Corpuscular Hgb Concent. 32.3 g/dL (32-36); Mean Platelet Volume 9.3 fL (7.5-11.0); Monocyte (Absolute #) 0.69 x10^3/uL (0.0-1.3); Monocytes % 8.4 % (0.0-12.0); Neutrophil % 63.4 % (36.0-66.0); Platelet Count 321 x10^3/uL (150-450); Red Blood Count 4.62 x10^6/uL (4.1-5.4); Red Cell Distribution Width 12.7 % (11.5-14.0); White Blood Count 8.2 x10^3/uL (4.0-10.5)
[2022-12-12 03:33] LABS: ALBUMIN 3.4 g/dL (3.5-5.0); ALKALINE PHOSPHATASE 96 U/L (38-126); ANION GAP 13.4 MEQ/L (5-15); BLOOD UREA NITROGEN 15 mg/dL (7-17); CHLORIDE 112 mmol/L (98-107); Carbon Dioxide 21 mmol/L (22-30); Creatinine 1 0.69 mg/dL (0.52-1.04); EST GLOMERULAR FILTRATION RATE > 60.0 ML/MIN; Glucose 77 mg/dL (74-106); Potassium 3.5 mmol/L (3.5-5.1); SGOT/AST 21 U/L (14-36); SGPT/ALT 25 U/L (0-35); SODIUM 143 mmol/L (137-145); Total Protein 5.9 g/dL (6.3-8.2)
[2022-12-12] MEDS ORDERED: SYNTHROID 100 MCG PO SCH (07:00)
[2022-12-12] MEDS ORDERED: ZENPEP DR 5,000 UNIT CAPSULE PO SCH (08:00)
[2022-12-12] MEDS ORDERED: PATIENT OWN MEDICATION PO SCH ×2 (08:00)
[2022-12-12] MEDS ORDERED: PATIENT OWN MEDICATION PO PRN (08:35)
--- NOTE | 2022-12-12 08:56 | PCM.DS ---
Discharge Summary Date of Admission: 12/11/22 22:09 Admitting Physician: MARY LEYVA MD Primary Care Provider: KIRSTEN LENNON Allergies Allergies gabapentin Allergy (Verified 12/11/22 18:00) leflunomide Allergy (Verified 12/11/22 18:00) metoprolol Allergy (Verified 12/11/22 18:00) Hospital Summary - Hospital Course Hospital Course: Pt is a 52 yo female pt of [facility] with PMHx DM II on insulin, CAD (CABG 1 yr ago), obesity, chronic back pain (sees pain mgmt), RA, pancreatic insufficiency, PEREIRA, GERD, and hx PUD (age 9) who came to ER with epigastric pain, N, and V. It started at noon yesterday, 6/10 nonradiating pain from epigastrum to umbilicus. This same pain occured Jul 02, and Nov 15. Could not get comfortable. Abd/pelvis CT was nonacute. WBC 10.4 in ER, 8.2 this a.m. No anemia. CMP nonacute. This morning, she has no abdominal pain. Would like to eat then go home. - Vitals & Intake/Output Vital Signs: Vital Signs Temperature 97.7 F 12/12/22 08:00 Pulse Rate 104 H 12/12/22 08:00 Respiratory Rate 18 12/12/22 08:00 Blood Pressure 121/63 12/12/22 08:00 O2 Sat by Pulse Oximetry 96 12/12/22 08:00 Intake & Output: Intake & Output 12/09/22 12/10/22 12/11/22 12/12/22 11:59 11:59 11:59 11:59 Intake Total 335 Output Total 300 Balance 35 Weight 78.018 kg - Lab Result Diagrams: 12/12/22 03:15 12/12/22 03:15 Lab Results-Last 24 Hrs: Lab Results-Last 24 Hours 12/11/22 12/11/22 12/11/22 Range/Units 18:02 18:02 18:02 WBC 10.4 (4.0-10.5) x10^3/uL RBC 5.30 (4.1-5.4) x10^6/uL Hgb 16.0 (12.0-16.0) g/dL Hct 48.2 H (35-47) % MCV 90.9 (78-100) fL MCH 30.2 (26-32) pg MCHC 33.2 (32-36) g/dL RDW 12.3 (11.5-14.0) % Plt Count 381 (150-450) x10^3/uL MPV 9.3 (7.5-11.0) fL Gran % 85.2 H (36.0-66.0) % Immature Gran % (Auto) 0.3 (0.00-0.4) % Nucleat RBC Rel Count 0.0 (0.00-0.1) % Eos # (Auto) 0 (0-0.5) x10^3/uL Immature Gran # (Auto) 0.03 (0.00-0.03) x10^3u/L Absolute Lymphs (auto) 1.20 (1.0-4.6) x10^3/uL Absolute Monos (auto) 0.27 (0.0-1.3) x10^3/uL Absolute Nucleated RBC 0.00 (0.00-0.01) x10^3u/L Lymphocytes % 11.5 L (24.0-44.0) % Monocytes % 2.6 (0.0-12.0) % Eosinophils % 0.0 (0.00-5.0) % Basophils % 0.4 (0.0-0.4) % Absolute Granulocytes 8.89 H (1.4-6.9) x10^3/uL Basophils # 0.04 (0-0.4) x10^3/uL pO2/FiO2 Ratio % VBG pH (7.32-7.42) VBG pCO2 at Pat Temp (42-55) mm/Hg VBG pO2 at Pat Temp (25-40) mm/Hg VBG HCO3 (22-28) meq/L VBG O2 Sat (Deborah) (95-100) VBG Base Excess (-2.0-2.0) VBG Hemoglobin VBG Carboxyhemoglobin (0.0-6.9) % T HGB POC Potassium (3.5-5.1) Sodium 143 (137-145) mmol/L Potassium 3.7 (3.5-5.1) mmol/L Chloride 109 H (98-107) mmol/L Carbon Dioxide 21 L (22-30) mmol/L Anion Gap 17.7 H (5-15) MEQ/L BUN 12 (7-17) mg/dL Creatinine 0.67 (0.52-1.04) mg/dL Estimated GFR > 60.0 ML/MIN Glucose 155 H (74-106) mg/dL POC Glucometer (74 to 106) mg/dL Lactic Acid (0.4-2.0) Calcium 10.0 (8.4-10.2) mg/dL Total Bilirubin 0.70 (0.2-1.3) mg/dL AST 29 (14-36) U/L ALT 31 (0-35) U/L Alkaline Phosphatase 130 H (38-126) U/L Troponin I 0.092 H* (0.000-0.034) ng/mL Serum Total Protein 7.4 (6.3-8.2) g/dL Albumin 4.5 (3.5-5.0) g/dL Amylase 65 (30-110) U/L Lipase 253 (23-300) U/L Urine Color (Yellow) Urine Appearance (Clear) Urine pH (4.6-8.0) Ur Specific [place] (1.005-1.030) Urine Protein (Negative) Urine Glucose (UA) (Negative) mg/dL Urine Ketones (Negative) Urine Blood (Negative) Urine Nitrite (Negative) Urine Bilirubin (Negative) Urine Urobilinogen (0.2) mg/dL Ur Leukocyte Esterase (Negative) U Hyaline Cast (Auto) (0-2) /LPF Urine Microscopic RBC (0-5) /HPF Urine Microscopic WBC (0-5) /HPF Ur Epithelial Cells (None Seen) /HPF Urine Bacteria (None Seen) /HPF Urine Culture Reflexed (NO) Influenza Type A Ag (NEGATIVE) Influenza Type B Ag (NEGATIVE) RSV (PCR) (NEGATIVE) SARS-CoV-2 (PCR) (NEGATIVE) 12/11/22 12/11/22 12/11/22 Range/Units 18:05 18:47 18:54 WBC (4.0-10.5) x10^3/uL RBC (4.1-5.4) x10^6/uL Hgb (12.0-16.0) g/dL Hct (35-47) % MCV (78-100) fL MCH (26-32) pg MCHC (32-36) g/dL RDW (11.5-14.0) % Plt Count (150-450) x10^3/uL MPV (7.5-11.0) fL Gran % (36.0-66.0) % Immature Gran % (Auto) (0.00-0.4) % Nucleat RBC Rel Count (0.00-0.1) % Eos # (Auto) (0-0.5) x10^3/uL Immature Gran # (Auto) (0.00-0.03) x10^3u/L Absolute Lymphs (auto) (1.0-4.6) x10^3/uL Absolute Monos (auto) (0.0-1.3) x10^3/uL Absolute Nucleated RBC (0.00-0.01) x10^3u/L Lymphocytes % (24.0-44.0) % Monocytes % (0.0-12.0) % Eosinophils % (0.00-5.0) % Basophils % (0.0-0.4) % Absolute Granulocytes (1.4-6.9) x10^3/uL Basophils # (0-0.4) x10^3/uL pO2/FiO2 Ratio % VBG pH (7.32-7.42) VBG pCO2 at Pat Temp (42-55) mm/Hg VBG pO2 at Pat Temp (25-40) mm/Hg VBG HCO3 (22-28) meq/L VBG O2 Sat (Deborah) (95-100) VBG Base Excess (-2.0-2.0) VBG Hemoglobin VBG Carboxyhemoglobin (0.0-6.9) % T HGB POC Potassium (3.5-5.1) Sodium (137-145) mmol/L Potassium (3.5-5.1) mmol/L Chloride (98-107) mmol/L Carbon Dioxide (22-30) mmol/L Anion Gap (5-15) MEQ/L BUN (7-17) mg/dL Creatinine (0.52-1.04) mg/dL Estimated GFR ML/MIN Glucose (74-106) mg/dL POC Glucometer (74 to 106) mg/dL Lactic Acid 1.6 (0.4-2.0) Calcium (8.4-10.2) mg/dL Total Bilirubin (0.2-1.3) mg/dL AST (14-36) U/L ALT (0-35) U/L Alkaline Phosphatase (38-126) U/L Troponin I (0.000-0.034) ng/mL Serum Total Protein (6.3-8.2) g/dL Albumin (3.5-5.0) g/dL Amylase (30-110) U/L Lipase (23-300) U/L Urine Color Yellow (Yellow) Urine Appearance Clear (Clear) Urine pH 5.0 (4.6-8.0) Ur Specific [place] >=1.030 A (1.005-1.030) Urine Protein Negative (Negative) Urine Glucose (UA) >=1000 A (Negative) mg/dL Urine Ketones 80 A (Negative) Urine Blood Negative (Negative) Urine Nitrite Negative (Negative) Urine Bilirubin Negative (Negative) Urine Urobilinogen 0.2 (0.2) mg/dL Ur Leukocyte Esterase Negative (Negative) U Hyaline Cast (Auto) NONE SEEN (0-2) /LPF Urine Microscopic RBC 0-2 (0-5) /HPF Urine Microscopic WBC 0-2 (0-5) /HPF Ur Epithelial Cells None Seen (None Seen) /HPF Urine Bacteria None Seen (None Seen) /HPF Urine Culture Reflexed NO (NO) Influenza Type A Ag NEGATIVE (NEGATIVE) Influenza Type B Ag NEGATIVE (NEGATIVE) RSV (PCR) NEGATIVE (NEGATIVE) SARS-CoV-2 (PCR) NEGATIVE (NEGATIVE) 12/11/22 12/11/22 12/12/22 Range/Units 20:55 20:56 03:15 WBC (4.0-10.5) x10^3/uL RBC (4.1-5.4) x10^6/uL Hgb (12.0-16.0) g/dL Hct (35-47) % MCV (78-100) fL MCH (26-32) pg MCHC (32-36) g/dL RDW (11.5-14.0) % Plt Count (150-450) x10^3/uL MPV (7.5-11.0) fL Gran % (36.0-66.0) % Immature Gran % (Auto) (0.00-0.4) % Nucleat RBC Rel Count (0.00-0.1) % Eos # (Auto) (0-0.5) x10^3/uL Immature Gran # (Auto) (0.00-0.03) x10^3u/L Absolute Lymphs (auto) (1.0-4.6) x10^3/uL Absolute Monos (auto) (0.0-1.3) x10^3/uL Absolute Nucleated RBC (0.00-0.01) x10^3u/L Lymphocytes % (24.0-44.0) % Monocytes % (0.0-12.0) % Eosinophils % (0.00-5.0) % Basophils % (0.0-0.4) % Absolute Granulocytes (1.4-6.9) x10^3/uL Basophils # (0-0.4) x10^3/uL pO2/FiO2 Ratio 21.0 % VBG pH 7.43 H (7.32-7.42) VBG pCO2 at Pat Temp 36 L (42-55) mm/Hg VBG pO2 at Pat Temp 28 (25-40) mm/Hg VBG HCO3 23.9 (22-28) meq/L VBG O2 Sat (Deborah) 47.2 L (95-100) VBG Base Excess 0.0 (-2.0-2.0) VBG Hemoglobin 16.1 VBG Carboxyhemoglobin 1.7 (0.0-6.9) % T HGB POC Potassium 4.2 (3.5-5.1) Sodium (137-145) mmol/L Potassium (3.5-5.1) mmol/L Chloride (98-107) mmol/L Carbon Dioxide (22-30) mmol/L Anion Gap (5-15) MEQ/L BUN (7-17) mg/dL Creatinine (0.52-1.04) mg/dL Estimated GFR ML/MIN Glucose (74-106) mg/dL POC Glucometer (74 to 106) mg/dL Lactic Acid (0.4-2.0) Calcium (8.4-10.2) mg/dL Total Bilirubin (0.2-1.3) mg/dL AST (14-36) U/L ALT (0-35) U/L Alkaline Phosphatase (38-126) U/L Troponin I 0.094 H* 0.088 H* (0.000-0.034) ng/mL Serum Total Protein (6.3-8.2) g/dL Albumin (3.5-5.0) g/dL Amylase (30-110) U/L Lipase (23-300) U/L Urine Color (Yellow) Urine Appearance (Clear) Urine pH (4.6-8.0) Ur Specific [place] (1.005-1.030) Urine Protein (Negative) Urine Glucose (UA) (Negative) mg/dL Urine Ketones (Negative) Urine Blood (Negative) Urine Nitrite (Negative) Urine Bilirubin (Negative) Urine Urobilinogen (0.2) mg/dL Ur Leukocyte Esterase (Negative) U Hyaline Cast (Auto) (0-2) /LPF Urine Microscopic RBC (0-5) /HPF Urine Microscopic WBC (0-5) /HPF Ur Epithelial Cells (None Seen) /HPF Urine Bacteria (None Seen) /HPF Urine Culture Reflexed (NO) Influenza Type A Ag (NEGATIVE) Influenza Type B Ag (NEGATIVE) RSV (PCR) (NEGATIVE) SARS-CoV-2 (PCR) (NEGATIVE) 12/12/22 12/12/22 12/12/22 Range/Units 03:15 03:15 05:40 WBC 8.2 (4.0-10.5) x10^3/uL RBC 4.62 (4.1-5.4) x10^6/uL Hgb 14.1 (12.0-16.0) g/dL Hct 43.7 (35-47) % MCV 94.6 (78-100) fL MCH 30.5 (26-32) pg MCHC 32.3 (32-36) g/dL RDW 12.7 (11.5-14.0) % Plt Count 321 (150-450) x10^3/uL MPV 9.3 (7.5-11.0) fL Gran % 63.4 (36.0-66.0) % Immature Gran % (Auto) 0.2 (0.00-0.4) % Nucleat RBC Rel Count 0.0 (0.00-0.1) % Eos # (Auto) 0.01 (0-0.5) x10^3/uL Immature Gran # (Auto) 0.02 (0.00-0.03) x10^3u/L Absolute Lymphs (auto) 2.24 (1.0-4.6) x10^3/uL Absolute Monos (auto) 0.69 (0.0-1.3) x10^3/uL Absolute Nucleated RBC 0.00 (0.00-0.01) x10^3u/L Lymphocytes % 27.4 (24.0-44.0) % Monocytes % 8.4 (0.0-12.0) % Eosinophils % 0.1 (0.00-5.0) % Basophils % 0.5 (0.0-0.4) % Absolute Granulocytes 5.19 (1.4-6.9) x10^3/uL Basophils # 0.04 (0-0.4) x10^3/uL pO2/FiO2 Ratio % VBG pH (7.32-7.42) VBG pCO2 at Pat Temp (42-55) mm/Hg VBG pO2 at Pat Temp (25-40) mm/Hg VBG HCO3 (22-28) meq/L VBG O2 Sat (Deobrah) (95-100) VBG Base Excess (-2.0-2.0) VBG Hemoglobin VBG Carboxyhemoglobin (0.0-6.9) % T HGB POC Potassium (3.5-5.1) Sodium 143 (137-145) mmol/L Potassium 3.5 (3.5-5.1) mmol/L Chloride 112 H (98-107) mmol/L Carbon Dioxide 21 L (22-30) mmol/L Anion Gap 13.4 (5-15) MEQ/L BUN 15 (7-17) mg/dL Creatinine 0.69 (0.52-1.04) mg/dL Estimated GFR > 60.0 ML/MIN Glucose 77 (74-106) mg/dL POC Glucometer 63 L (74 to 106) mg/dL Lactic Acid (0.4-2.0) Calcium 9.0 (8.4-10.2) mg/dL Total Bilirubin 0.60 (0.2-1.3) mg/dL AST 21 (14-36) U/L ALT 25 (0-35) U/L Alkaline Phosphatase 96 (38-126) U/L Troponin I (0.000-0.034) ng/mL Serum Total Protein 5.9 L (6.3-8.2) g/dL Albumin 3.4 L (3.5-5.0) g/dL Amylase (30-110) U/L Lipase (23-300) U/L Urine Color (Yellow) Urine Appearance (Clear) Urine pH (4.6-8.0) Ur Specific [place] (1.005-1.030) Urine Protein (Negative) Urine Glucose (UA) (Negative) mg/dL Urine Ketones (Negative) Urine Blood (Negative) Urine Nitrite (Negative) Urine Bilirubin (Negative) Urine Urobilinogen (0.2) mg/dL Ur Leukocyte Esterase (Negative) U Hyaline Cast (Auto) (0-2) /LPF Urine Microscopic RBC (0-5) /HPF Urine Microscopic WBC (0-5) /HPF Ur Epithelial Cells (None Seen) /HPF Urine Bacteria (None Seen) /HPF Urine Culture Reflexed (NO) Influenza Type A Ag (NEGATIVE) Influenza Type B Ag (NEGATIVE) RSV (PCR) (NEGATIVE) SARS-CoV-2 (PCR) (NEGATIVE) 12/12/22 12/12/22 Range/Units 05:53 07:00 WBC (4.0-10.5) x10^3/uL RBC (4.1-5.4) x10^6/uL Hgb (12.0-16.0) g/dL Hct (35-47) % MCV (78-100) fL MCH (26-32) pg MCHC (32-36) g/dL RDW (11.5-14.0) % Plt Count (150-450) x10^3/uL MPV (7.5-11.0) fL Gran % (36.0-66.0) % Immature Gran % (Auto) (0.00-0.4) % Nucleat RBC Rel Count (0.00-0.1) % Eos # (Auto) (0-0.5) x10^3/uL Immature Gran # (Auto) (0.00-0.03) x10^3u/L Absolute Lymphs (auto) (1.0-4.6) x10^3/uL Absolute Monos (auto) (0.0-1.3) x10^3/uL Absolute Nucleated RBC (0.00-0.01) x10^3u/L Lymphocytes % (24.0-44.0) % Monocytes % (0.0-12.0) % Eosinophils % (0.00-5.0) % Basophils % (0.0-0.4) % Absolute Granulocytes (1.4-6.9) x10^3/uL Basophils # (0-0.4) x10^3/uL pO2/FiO2 Ratio % VBG pH (7.32-7.42) VBG pCO2 at Pat Temp (42-55) mm/Hg VBG pO2 at Pat Temp (25-40) mm/Hg VBG HCO3 (22-28) meq/L VBG O2 Sat (Deborah) (95-100) VBG Base Excess (-2.0-2.0) VBG Hemoglobin VBG Carboxyhemoglobin (0.0-6.9) % T HGB POC Potassium (3.5-5.1) Sodium (137-145) mmol/L Potassium (3.5-5.1) mmol/L Chloride (98-107) mmol/L Carbon Dioxide (22-30) mmol/L Anion Gap (5-15) MEQ/L BUN (7-17) mg/dL Creatinine (0.52-1.04) mg/dL Estimated GFR ML/MIN Glucose (74-106) mg/dL POC Glucometer 131 H (74 to 106) mg/dL Lactic Acid (0.4-2.0) Calcium (8.4-10.2) mg/dL Total Bilirubin (0.2-1.3) mg/dL AST (14-36) U/L ALT (0-35) U/L Alkaline Phosphatase (38-126) U/L Troponin I 0.080 H* (0.000-0.034) ng/mL Serum Total Protein (6.3-8.2) g/dL Albumin (3.5-5.0) g/dL Amylase (30-110) U/L Lipase (23-300) U/L Urine Color (Yellow) Urine Appearance (Clear) Urine pH (4.6-8.0) Ur Specific [place] (1.005-1.030) Urine Protein (Negative) Urine Glucose (UA) (Negative) mg/dL Urine Ketones (Negative) Urine Blood (Negative) Urine Nitrite (Negative) Urine Bilirubin (Negative) Urine Urobilinogen (0.2) mg/dL Ur Leukocyte Esterase (Negative) U Hyaline Cast (Auto) (0-2) /LPF Urine Microscopic RBC (0-5) /HPF Urine Microscopic WBC (0-5) /HPF Ur Epithelial Cells (None Seen) /HPF Urine Bacteria (None Seen) /HPF Urine Culture Reflexed (NO) Influenza Type A Ag (NEGATIVE) Influenza Type B Ag (NEGATIVE) RSV (PCR) (NEGATIVE) SARS-CoV-2 (PCR) (NEGATIVE) Micro Results-Entire Visit: Accuchecks Date 12/12/22 Time 05:46 - Radiology Exams Ordered Rad Exams-Entire Visit: Radiology Procedures Category Date Time Status ABDOMEN AND PELVIS W/0 CONTRAS [CT] Stat Exams 12/11/22 18:17 Completed - Procedures and Test Procedures and Tests throughout Hospitalization: Therapy Orders & Screens 12/11/22 23:27 PT Eval & Treat ( Order) ONCE Reason for Eval:: order Diagnosis: abd pain 12/12/22 05:00 EKG ROUTINE Comment: Discharge Exam General Appearance: no apparent distress, obese Neurologic Exam: alert, oriented x 3, cooperative Eye Exam: eyes nml inspection Ears, Nose, Throat Exam: moist mucous membranes Neck Exam: normal inspection, non-tender, No subcutaneous emphysema, No thyromegaly Respiratory Exam: normal breath sounds, lungs clear, No crackles/rales, No rhonchi, No wheezing Cardiovascular Exam: regular rate/rhythm, normal heart sounds, No murmur Extremity Exam: normal inspection, No pedal edema, No swelling Skin Exam: normal color, warm, dry, No rash Final Diagnosis/Problem List - Final Discharge Diagnosis/Problem (1) Abdominal pain Current Visit: Yes Status: Resolved Assessment & Plan: She needs to f/u with GI, particularly with her remote hx PUD. Pain is gone now; if she can eat, she can go home. Code(s): R10.9 - UNSPECIFIED ABDOMINAL PAIN (2) Elevated troponin Current Visit: Yes Status: Acute Assessment & Plan: Trending down, likely due to acute illness/vomiting. Code(s): R77.8 - OTHER SPECIFIED ABNORMALITIES OF PLASMA PROTEINS (3) Diabetes mellitus type II, controlled Current Visit: Yes Status: Chronic Code(s): E11.9 - TYPE 2 DIABETES MELLITUS WITHOUT COMPLICATIONS (4) Pancreatic insufficiency Current Visit: Yes Status: Chronic Code(s): K86.89 - OTHER SPECIFIED D ISEASES OF PANCREAS (5) GERD (gastroesophageal reflux disease) Current Visit: Yes Status: Chronic Code(s): K21.9 - GASTRO-ESOPHAGEAL REFLUX DISEASE WITHOUT ESOPHAGITIS (6) History of peptic ulcer disease Current Visit: Yes Status: Inactive Code(s): Z87.11 - PERSONAL HISTORY OF PEPTIC ULCER DISEASE - Discharge Disposition: Home, Self-Care Condition: Good Prescriptions: New Ondansetron ODT 4 MG [Zofran Odt 4 mg] 4 mg PO Q6H PRN PRN 3 Days #10 tablet PRN Reason: Nausea Continue Aspirin EC 81 mg [Ecotrin 81 mg] 81 mg PO DAILY Abatacept [Orencia Clickject] 125 mg SQ UD Insulin Aspart (Niacinamide) [Fiasp 100 Unit/ml Flextouch] 10 units SQ DAILY Fluticasone/Umeclidin/Vilanter [Trelegy Ellipta 200-62.5-25] 1 inh PO DAILY Lipase/Protease/Amylase [Ly Elizalde 36,000 Unit Capsule] 36,000 units PO UD Tizanidine HCl [Zanaflex] 6 mg PO DAILY Levothyroxine Sodium 100 mcg PO DAILY Potassium Chloride [Klor-Con M20] 40 meq PO BID Montelukast Sodium 10 mg [Singulair 10 MG] 10 mg PO DAILY Furosemide 20 mg [Lasix 20 mg] 20 mg PO DAILY Ferrous Sulfate 325 mg PO BID Dapagliflozin Propanediol [Farxiga] 10 mg PO HS Famotidine 20 mg [Pepcid 20 MG] 20 mg PO DAILY dilTIAZem HCl [Diltiazem 24Hr ER (Cd)] 180 mg PO DAILY Buspirone HCl 5 mg [Buspar 5 mg] 5 mg PO BID Baclofen 10 mg [Lioresal 10 mg] 10 mg PO TID Atorvastatin Calcium 40 mg PO DAILY PANTOPRAZOLE 40 mg Tablet [Protonix 40MG Tablet] 40 mg PO QPM Follow up with: KIRSTEN LENNON [Primary Care Provider] - YUSRA MARIE MD [Family Provider] -
--- NOTE | 2022-12-12 09:26 | XRAY ---
Indication: Elevated troponin. Comparison: [facility] 2009 Portable chest remains inflated and clear. Heart not enlarged with interval CABG surgery. Bony thorax intact. Impression: Nonacute chest.
[2022-12-12] MEDS ORDERED: BUSPAR 5 MG PO SCH (10:00)
[2022-12-12] MEDS ORDERED: INSULIN ASPART 100 UNIT/ML SQ SCH (10:00)
[2022-12-12] MEDS ORDERED: HUMALOG SQ SCH (10:00)
[2022-12-12] MEDS ORDERED: [UNRECOGNIZED DRUG - OTHER] SQ SCH (10:00)
[2022-12-12] MEDS ORDERED: NON-FORMULARY ITEM (Fluticasone/Umeclidin/Vilanter [Trelegy Ellipta 200-62.5-25] 1 EACH Bl PO SCH (10:00)
[2022-12-12] MEDS ORDERED: Zanaflex 4 MG PO SCH (10:00)
[2022-12-12] MEDS ORDERED: LIORESAL 10 MG PO SCH (10:00)
[2022-12-12] MEDS ORDERED: MEDICATION INTERVENTION MC SCH ×2 (10:00→10:30)
[2022-12-12] MEDS ORDERED: NON-FORMULARY ITEM (Potassium Chloride [Klor-Con M20] 20 MEQ Tab.Er.Prt) PO SCH (10:00)
[2022-12-12] MEDS ORDERED: Klor Con PO SCH (10:00)
[2022-12-12] MEDS ORDERED: ENOXAPARIN SODIUM SQ SCH (10:00)
[2022-12-12] MEDS ORDERED: Cardizem CD PO SCH (10:00)
[2022-12-12] MEDS ORDERED: BABY ASPIRIN 81 MG CHEW PO SCH (10:00)
[2022-12-12] MEDS ORDERED: Pepcid 20 MG PO SCH ×2 (10:00→22:00)
[2022-12-12] MEDS ORDERED: Protonix 40MG Tablet PO SCH ×2 (10:00→22:00)
[2022-12-12] MEDS ORDERED: ECOTRIN 81 MG PO SCH (10:00)
[2022-12-12] MEDS ORDERED: Singulair 10 MG PO SCH (10:00)
[2022-12-12] MEDS ORDERED: LASIX 20 MG PO SCH (10:00)
[2022-12-12] MEDS ORDERED: FEOSOL 325 MG PO SCH (10:00)
[2022-12-12 10:46] VITALS: BP 138/65; PULSE 88
[2022-12-12] MEDS ORDERED: LIPITOR 40MG PO SCH (22:00)
[2022-12-12] MEDS ORDERED: ZOCOR 20MG PO SCH (22:00)
[2022-12-12] MEDS ORDERED: NON-FORMULARY ITEM (Dapagliflozin Propanediol [Farxiga] 10 MG Tablet) PO SCH (22:00)
== END 2022-12-12 12:10 | disposition home or self-care (01) ==
LOC: ED 17:25 → MED SURG 22:09
PROVIDERS: ADMIT Internal Medicine Critical Care Medicine; ATTEND Family Medicine
DX: R10.9 Unspecified abdominal pain (principal); R77.8 Other specified abnormalities of plasma proteins; E11.9 Type 2 diabetes mellitus without complications; K86.89 Other specified diseases of pancreas; K21.9 Gastro-esophageal reflux disease without esophagitis; I25.10 Atherosclerotic heart disease of native coronary artery without angina pectoris; I10 Essential (primary) hypertension; Z87.11 Personal history of peptic ulcer disease; Z79.899 Other long term (current) drug therapy; Z20.828 Contact with and (suspected) exposure to other viral communicable diseases; Z95.1 Presence of aortocoronary bypass graft
CPT/HCPCS: 0241U; 36000; 36415; 71045; 74176; 80053; 81001; 82150; 82805; 82947; 83605; 83690; 84484; 85025; 87040; 93005; 93268; 96374; 96375; 99284; G0378; J2405; A9270-GY